=== PATIENT | female | born 1955 | race Caucasian/White ===

== ENCOUNTER → 2016-11-05 | Outpatient (CLI) | payer OTHER ==
[~2016-11-05] MED LIST: ATOR10TA9 PO; MULT-658 PO
[2016-11-05 13:40] LABS: BLOOD UREA NITROGEN 18 mg/dL (7-18)
[2016-11-05 13:45] LABS: HEMOGLOBIN 14.3 g/dL (11.7-16.4)
[2016-11-05 14:10] LABS: HIV 1&2 ANTIBODY SCREEN Nonreactive (Nonreactive); HIV-1 p24 ANTIGEN Nonreactive (Nonreactive)
== END | disposition home or self-care (01) ==
LOC: STAR 11:58
PROVIDERS: ATTEND Orthopaedic Surgery
DX: Z01.818 Encounter for other preprocedural examination (principal); M17.11 Unilateral primary osteoarthritis, right knee
CPT/HCPCS: 36415; 80048; 81003; 83036; 85025; 85610; 85730; 86703; 87081; 87899; 93005; G0435